=== PATIENT | female | born 1930 | race Caucasian/White ===

== ENCOUNTER 2017-04-20 10:04 | Emergency (ER) | payer OTHER ==
[~2017-04-20] VITALS: Ht 167.6 cm; Wt 69.9 kg
[~2017-04-20 10:04] MED LIST: COUMADIN 2.5 M2.5 MG; DIGOXIN0.125 MG PO; K-DUR 20MEQ TA20 MEQ PO; LISINOPRIL40 MG PO; LOPRESSOR 25MG25 MG PO; LOSARTAN POTASS1 TA2 PO; METFORMIN1000 MG PO; PRESERVISION1 SGL PO; WARFARIN SODIUM5 MG PO; ZOCOR 40MG TAB40 MG PO
--- NOTE | 2017-04-20 11:08 | RADIOLOGY REPORT ---
EXAMINATION: XR HIP, LEFT CLINICAL INFORMATION: Pain after fall. COMPARISON: 03/22/2014 TECHNIQUE: Two views of the left hip. FINDINGS: The examined left pelvic bones remain intact. 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 At the left hip, there is chronic, mild joint space narrowing and osteophyte formation. No evidence of acute femoral fracture, acetabular injury or subluxation. There is a bone island in the intertrochanteric femur. There is intratendinous calcification of the hamstrings at their ischial tuberosity origin. IMPRESSION: 1. No evidence of acute osseous injury at the left hip. 2. Chronic, mild osteoarthritis of the left hip and chronic osteoarthritis of the visualized left sacroiliac joint.
--- NOTE | 2017-04-20 11:22 | ED GENERAL ADULT ---
History of Present Illness General Chief Complaint: Fall Stated Complaint: S/P FALL 3 WEEKS AGO LEFT HIP PAIN Source: patient Exam Limitations: no limitations Vital Signs & Intake/Output Vital Signs & Intake/Output Vital Signs Date Time Temp Pulse Resp B/P B/P Pulse O2 O2 Flow FiO2 Mean Ox Delivery Rate 04/20 1210 Room Air 04/20 1210 98.9 74 18 144/65 96 Room Air 04/20 1011 97.2 78 16 128/58 95 Room Air Allergies Coded Allergies: NO KNOWN ALLERGIES (04/20/17) Reconcile Medications Digoxin 0.125 MG TAB 1 TAB PO DAILY HEART (Reported) Lisinopril 40 MG TABLET 1 TAB PO DAILY BP (Reported) LOSARTAN/HYDROCHLOROTHIAZIDE (Losartan-Hctz 100-25 MG Tab) 100 MG-25 MG TABLET 1 TAB PO DAILY HEART (Reported) METFORMIN HCL (Metformin) 1,000 MG TABLET 1 TAB PO BID SUGAR (Reported) Metoprolol Tartrate (Lopressor) 25 MG TABLET 1 TAB PO BID BP (Reported) POTASSIUM CHLORIDE (K-Dur) 20 MEQ TAB.ER.PRT 1 TAB PO DAILY UNKNOWN (Reported ) Simvastatin (Zocor 40MG Tab) 40 MG TABLET 1 TAB PO QPM CHLOESTEROL (Reported) VIT A/VIT C/VIT E/ZINC/COPPER (Preservision Areds Softgel) 14,320-226 CAPSULE 1 SGL PO BID EYES (Reported) Warfarin Sodium 5 MG TABLET 5 MG PO COUMADIN Fri BLOOD (Reported) Warfarin Sodium (Coumadin) 2.5 MG TABLET 2.5 MG BLOOD THINNER (Reported) Triage Note: PT STATES SHE FELL OVER 3 WEEKS AGO AND PT WENT TO URGENT CARE AND HAS X-RAY AND WAS TOLD SHE HAS ARTHRITIS. PT CONT. WITH PAIN AND FAMILY WANTS HER RE-EVALUATED Triage Nurses Notes Reviewed? yes HPI: 86 y/o female with h/o HTN, HLD, DM presenting with left hip pain s/p mechanical fall 3 weeks ago. Reports that she tripped and fell from standing level, landing on her left hip. Denies head injuries or loss of consciousness. Was evaluated by an urgent care that day and had x-rays of the left hip which were unremarkable for acute injury at that time. Patient presents now for continued left hip pain worse with ambulation. At baseline ambulates with a cane, reports no changes to baseline ambulation. Has been trying Tylenol with mild improvement. (SHEBA GILL PA-C) Past History Travel History Traveled to [place] past 21 day No Medical History Any Pertinent Medical History? see below for history Cardiovascular: hypertension, hyperlipidemia, A-FIB Endocrine: diabetes Pneumonia Vaccine: 11/10/11 Surgical History Surgical History: non-contributory Psychosocial History Who do you live with Daughter Services at Home None What is your primary language Malagasy Tobacco Use: Never used ETOH Use: denies use Illicit Drug Use: denies illicit drug use Family History Hx Contributory? No (SHEBA GILL PA-C) Review of Systems Review of Systems Constitutional: Reports: no symptoms. Respiratory: Reports: no symptoms. Cardiovascular: Reports: no symptoms. GI: Reports: no symptoms. Genitourinary: Reports: no symptoms. Musculoskeletal: Reports: joint pain (left hip). Denies: back pain, joint swelling, muscle pain, muscle stiffness. Skin: Reports: no symptoms. Neurological/Psychological: Reports: no symptoms. (SHEBA GILL PA-C) Physical Exam Physical Exam General Appearance: well developed/nourished, no apparent distress, alert, awake , comfortable Head: atraumatic Respiratory: normal breath sounds, lungs clear Cardiovascular: regular rate/rhythm Extremities: normal inspection, normal range of motion, on exam of the left hip there is no erythema, edema, increased warmth, abrasions, lacerations, ecchymosis, or other signs of physical trauma. There is no tenderness to palpation. Normal sensation. Motor strength 5 out of 5. Distal pulses palpable and 2+. Patient is able to ambulate with a steady gait using her cane for assistance. Neurologic/Psych: awake, alert, oriented x 3, normal gait Core Measures ACS in differential dx? No CVA/TIA Diagnosis: No Severe Sepsis Present: No Septic Shock Present: No (SHEBA GILL PA-C) Progress Differential Diagnoses I considered the following diagnoses in my evaluation of the patient: [Left hip fracture versus dislocation versus contusion versus muscle strain versus an injury versus osteoarthritis] Plan of Care: Current Medications Sig/Linda Start time Last Medication Dose Stop Time Status Admin Acetaminophen 650 MG ONCE ONE 04/20 1200 UNVr (Tylenol) 04/20 1201 X-ray imaging unremarkable, no signs of fracture or dislocation. Patient recommended to continue using Tylenol as needed for pain. He also instructed that she may follow up with her primary care provider and discuss the possibility of outpatient MRI testing to further evaluate her hip if the pain continues. (SHEBA GILL PA-C) Initial ED EKG: none (SHEBA GILL PA-C) Departure Departure Disposition: HOME OR SELF CARE Condition: Stable Clinical Impression Primary Impression: Left hip pain Referrals: VIKTORIYA BURROWS,CATA (PCP/Family) Additional Instructions: Use Tylenol as needed for pain. Follow-up with your primary care provider. Return to the ED for any new or worsening symptoms. Departure Forms: Customer Survey General Discharge Information (SHEBA GILL PA-C) PA/FLIGHT ENGINEER MANAGER Co-Sign Statement Statement: ED Attending supervision documentation- [X] I saw and evaluated the patient. I have also reviewed all the pertinent lab results and diagnostic results. I agree with the findings and the plan of care as documented in the PA's/FLIGHT ENGINEER MANAGER's documentation. [X] I have reviewed the ED Record and agree with the PA's/FLIGHT ENGINEER MANAGER's documentation. [] Additions or exceptions (if any) to the PAs/FLIGHT ENGINEER MANAGER's note and plan are summarized below: [] (DEE BURROWS,REBECCA Dominguez) Critical Care Note Critical Care Note Critical Care Time: non-applicable (SHEBA GILL PA-C)
[2017-04-20 12:10] VITALS: BP 144/65
== END 2017-04-20 12:25 ==
LOC: ERH 10:04
DX: M25.552 Pain in left hip (principal)
CPT/HCPCS: 73502-LT; J2930

== ENCOUNTER 2018-02-25 13:49 | Emergency (ER) | payer OTHER ==
[~2018-02-25] VITALS: Ht 154.9 cm; Wt 64.0 kg
[~2018-02-25 13:49] MED LIST changes: +AMIODARONE HCL200 M1 PO; +ELIQUIS2.5 M1 PO; +LASIX; +LASIX20 M1 PO; +LISINOPRIL40 M1 PO; +METFORMIN HCL1000 M1 PO; +METOPROLOL TART25 M1 PO; +POTASSIUM CHLO20 ME2 PO; +PRESERVISION A1 EAC2 PO; +VITAMIN D1000 UNIT PO
[2018-02-25 15:13] LABS: ABSOLUTE BASOPHIL COUNT 0 /CUMM (0.0-0.2); ABSOLUTE EOSINOPHIL COUNT 0.1 /CUMM (0.0-0.7); ABSOLUTE GRANULOCYTE CT 3.7 /CUMM (1.4-6.5); ABSOLUTE LYMPH COUNT 0.9 /CUMM (1.2-3.4); ABSOLUTE MONOCYTE COUNT 0.3 /CUMM (0.10-0.60); BASOPHIL % 0.1 % (0.0-2.0); EOSINOPHIL % 1.6 % (0-5); GRANULOCYTE % 73.9 % (42.2-75.2); HEMATOCRIT 34.2 % (37-47); MEAN CORPUSCULAR HGB 29.8 PG (27.0-31.0); MEAN CORPUSCULAR HGB CONC 31.3 G/DL (33.0-37.0); MEAN CORPUSCULAR VOLUME 95.1 FL (81.0-99.0); MEAN PLATELET VOLUME 7.4 FL (7.4-10.4); PLATELET COUNT 288 /CUMM (130-400); RBC DISTRIBUTION WIDTH 18.9 % (11.5-14.5); RED BLOOD CELL CT 3.59 /CUMM (4.20-5.40)
[2018-02-25 15:22] VITALS: BP 138/63
--- NOTE | 2018-02-25 15:31 | RADIOLOGY REPORT ---
EXAMINATION: XR CHEST CLINICAL INFORMATION: Sinus bradycardia after cardioversion. COMPARISON: Chest x-ray 07/25/2017. TECHNIQUE: Frontal and lateral views of the chest were obtained. FINDINGS: The lung guevara are moderately well-expanded. There is no focal consolidation. The cardiac silhouette is prominent, increased compared to the prior study. There is mild increased prominence of the central pulmonary vasculature. There are small bilateral pleural effusions which appear unchanged. The aortic arch is calcified and unfolded. There are multilevel degenerative changes in the thoracic spine. There is loss of vertebral body height of a mid thoracic vertebra (likely T8), which is a new finding compared to the prior study, but is age-indeterminate. L1 compression fracture appears stable. Stimulator leads are noted projected over the chest on the lateral view. IMPRESSION: 1. There is increase in the cardiomegaly compared to the prior study, with mild interval increase in the central pulmonary vasculature. There are small bilateral pleural effusions, which appear relatively stable. 2. There is no focal consolidation.
--- NOTE | 2018-02-25 16:10 | ED CARDIAC/CP/PALPITATIONS ---
History of Present Illness General Chief Complaint: General Adult Stated Complaint: BRADYCARDIA Source: patient, senior cost analyst Exam Limitations: no limitations Vital Signs & Intake/Output Vital Signs & Intake/Output Vital Signs Date Time Temp Pulse Resp B/P B/P Pulse O2 O2 Flow FiO2 Mean Ox Delivery Rate 02/25 1522 98.3 46 18 138/63 94 Room Air 02/25 1447 41 02/25 1436 59 02/25 1358 97.7 42 20 151/66 98 Room Air Allergies Coded Allergies: NO KNOWN ALLERGIES (04/20/17) Reconcile Medications Amiodarone (Cordarone) 200 MG TAB 1 TAB PO BID HEART (Reported) Apixaban (Eliquis) 2.5 MG TABLET 1 TAB PO BID BLOOD THINNER (Reported) Cholecalciferol (Vitamin D3) (Vitamin D) 1,000 UNIT TABLET 1 TAB PO DAILY SUPPLEMENT (Reported) Furosemide (Lasix) 20 MG TABLET 1 TAB PO BID DIURETIC (Reported) Lisinopril 40 MG TABLET 1 TAB PO DAILY BP (Reported) Metformin HCl 1,000 MG TABLET 1 TAB PO BID DM (Reported) Metoprolol Tartrate 25 MG TABLET 1 TAB PO BID HEART/BP (Reported) Potassium Chloride 20 MEQ TAB.ER.PRT 1 TAB PO DAILY SUPPLEMENT (Reported) Vit A/Vit C/Vit E/Zinc/Copper (Preservision Areds Softgel) 14,320-226 CAPSULE 1 CAP PO BID SUPPLEMENT (Reported) Triage Note: TRIAGE: BROUGHT TO ED VIA STRETCHER FROM CARDIOLOGY, HAD ELECTIVE CARDIOVERSION FOR ATRIAL FIBRILLATION. HAS HAD BRADYCARDIA SINCE. TP TO BE TRANSFERRED TO [facility] (PER DR. HARKINS), ARRANGMENTS BEING MADE BY DR. BAKER. PT ALERT, DENIES CHEST PAIN OR SOB. Triage Nurses Notes Reviewed? yes HPI: Patient presents to the emergency department at the request of her senior cost analyst for persistent sinus bradycardia after cardioversion out of atrial fibrillation. Patient offers no specific complaint at this time. Past History Travel History Traveled to [place] past 21 day No Medical History Any Pertinent Medical History? see below for history Cardiovascular: hypertension, hyperlipidemia, A-FIB Endocrine: diabetes Surgical History Surgical History: non-contributory Psychosocial History Who do you live with Daughter Services at Home None What is your primary language Slovenian Tobacco Use: Never used ETOH Use: denies use Illicit Drug Use: denies illicit drug use Family History Hx Contributory? No Review of Systems Review of Systems Constitutional: Reports: no symptoms. EENTM: Reports: no symptoms. Respiratory: Reports: no symptoms. Cardiovascular: Reports: see HPI. GI: Reports: no symptoms. Genitourinary: Reports: no symptoms. Musculoskeletal: Reports: no symptoms. Skin: Reports: no symptoms. Neurological/Psychological: Reports: no symptoms. Hematologic/Endocrine: Reports: no symptoms. Immunologic/Allergic: Reports: no symptoms. All Other Systems: Reviewed and Negative Physical Exam Physical Exam Cardiovascular: see below Comments: Gen.: Well-nourished, well-developed, no acute respiratory distress. Head: Normocephalic, atraumatic. Eyes: Normal inspection bilaterally Ears: Normal inspection bilaterally Nose: Normal inspection Throat/mouth : Moist mucosa Neck: Supple, full range of motion, no goiter Heart: Slow Regular rate and rhythm, no murmurs rubs or gallops Lungs: Clear to auscultation bilaterally with normal air entry Chest: Nontender Back: Normal range of motion Abdomen: Soft, nontender, nondistended, normal bowel sounds Extremities: Normal range of motion grossly, equal radial pulses, no cyanosis clubbing or edema Neurologic: Cranial nerves grossly intact, speech is clear Skin: warm and dry Psychiatric: Calm, cooperative, no apparent delusions or hallucinations Core Measures ACS in differential dx? No CVA/TIA Diagnosis No Sepsis Present: No Sepsis Focused Exam Completed? No Progress Differential Diagnosis: sinus bradycardia, sinoatrial node dysfunction, sick sinus syndrome, conduction abnormality of the heart, valve disease, stunned heart status post cardioversion Plan of Care: Orders Procedure Date/time Status EKG 02/25 1451 Active Telemetry/Jingle Writer 02/25 1408 Active THYROID STIMULATING HORMONE 02/25 1408 Active TROPONIN LEVEL 02/25 1408 Active MAGNESIUM 02/25 1408 Active CBC WITHOUT DIFFERENTIAL 02/25 1408 Complete CALCIUM 02/25 1408 Active BASIC METABOLIC PANEL 02/25 1408 Active Laboratory Tests 02/25/18 1500: Sodium Pending, Potassium Pending, Chloride Pending, Carbon Dioxide Pending, Anion Gap Pending, BUN Pending, Creatinine Pending, BUN/Creatinine Ratio Pending , Glucose Pending, Calcium Pending, Magnesium Pending, Troponin I Pending, TSH Pending, CBC w Diff NO MAN DIFF REQ, RBC 3.59 L, MCV 95.1, MCH 29.8, MCHC 31.3 L, RDW 18.9 H, MPV 7.4, Gran % 73.9, Lymphocytes % 18.0 L, Monocytes % 6.4, Eosinophils % 1.6, Basophils % 0.1, Absolute Granulocytes 3.7, Absolute Lymphocytes 0.9 L, Absolute Monocytes 0.3, Absolute Eosinophils 0.1, Absolute Basophils 0 Diagnostic Imaging: Discussed w/RAD: Radiology Read. CXR Impression: increased cmg, stable effusions Initial ED EKG: sinus bradycardia without acute ischemic changes Comments: 02/25/2018 4:08:57 PM patient's case discussed with Dr. Ureña who confirmed the patient should be transferred to [facility] for consideration of pacemaker placement. Patient's case discussed with Alfredo, bed coordinator, and patient has been accepted in transfer to the [facility] emergency department under Dr. zepeda. per lab nl trop, glucose 145. Departure Departure Disposition: OTHER [facility] ([facility]) Condition: Stable Clinical Impression Primary Impression: Sinus bradycardia Referrals: Gin BURROWS,Lizette (PCP/Family) Departure Forms: Customer Survey General Discharge Information Critical Care Note Critical Care Note Critical Care Time: non-applicable
== END 2018-02-25 17:04 | disposition short-term general hospital (02) ==
LOC: ERH 13:49 → CANBEDREQ 15:14 → ERH 17:04
PROVIDERS: Emergency Medicine
DX: R00.1 Bradycardia, unspecified (principal)
CPT/HCPCS: 71046; 93005; 93010